=== PATIENT | male | born 1960 | race African-American/Black ===

== ENCOUNTER 2016-06-06 09:02 | Emergency (ER) | payer OTHER ==
[~2016-06-06] VITALS: Ht 177.8 cm; Wt 90.7 kg
--- NOTE | 2016-06-06 09:30 | ED UPPER/LOWER EXTREMITY COMPL ---
History of Present Illness General Chief Complaint: Upper Extremity Injury Stated Complaint: FALL, SHOULDER DISLOCATION? Source: patient Exam Limitations: no limitations Vital Signs & Intake/Output Vital Signs & Intake/Output Vital Signs Date Time Temp Pulse Resp B/P Pulse O2 O2 Flow FiO2 Ox Delivery Rate 06/06 1006 98.7 80 118/70 06/06 0912 98.1 72 20 112/76 96 Room Air Allergies Coded Allergies: codeine (Intermediate, NAUSEA 06/06/16) Reconcile Medications Albuterol Sulfate (Ventolin Hfa) 90 MCG HFA.AER.AD 2 PUF INH Q4-6 PRN PRN BREATHING PROBLEMS (Reported) Atenolol/Chlorthalidone (Atenolol-Chlorthalidone 50-25) 50 MG-25 MG TABLET 1 TAB PO DAILY HEART (Reported) Desloratadine (Clarinex) 5 MG TABLET 1 TAB PO DAILY ALLERGIES (Reported) Enalapril Maleate 2.5 MG TABLET 1 TAB PO DAILY HEART (Reported) Fenofibrate 160 MG TABLET 1 TAB PO DAILY TRIGLYCERIDES (Reported) Hydrocodone/Acetaminophen (Maddock 5-325 Tablet) 5 MG-325 MG TABLET 1-2 TAB PO Q4-6 PRN PRN pain Pioglitazone HCl 30 MG TABLET 1 TAB PO DAILY DIABETES (Reported) Simvastatin (Simvastatin*) 80 MG TABLET 1 TAB PO DAILY [id number] (Reported ) Sitagliptin Phosphate (Januvia) 100 MG TABLET 1 TAB PO DAILY DIABETES ( Reported) Tadalafil (Cialis) 20 MG TABLET 1 TAB PO DAILY PRN ED (Reported) Triage Note: TRIAGE: PT TO ER C/C PAIN TO L SHOULDER S/P FALL THIS MORNING. STATES HE SLIPPED ON ICE AND BRACED HIMSELF WITH HIS L ARM. STATES FELT A SHARP PAIN AND COULDN'T MOVE HIS ARM. STATES HAS MOBILITY BUT HAS EXCRUCIATING PAIN WITH MOVEMENT. Triage Nurses Notes Reviewed? yes Onset: Abrupt Duration: hour(s): (1) Timing: no prior history Severity: moderate Severity Numbers: 8 Pain/Injury Location: Left: Shoulder. Method of Injury: fall Modifying Factors: Improves With: immobilization. HPI: Patient is a 55-year-old male presenting to the emergency department with chief complaint of left shoulder pain 1 hour after he slipped and fell on ice. Patient reports that the pain is moderate achy throbbing, gets sharp and stabbing in betrays to move his arm. Denies numbness or tingling. Denies radiation of the pain. Denies head injury. No neck pain or back pain. Denies taking anything prior to arrival to help with pain. He thinks he may have dislocated his shoulder. (SCOTTIE LINDSEY) Past History Travel History Traveled to [place] past 21 day No Medical History Any Pertinent Medical History? see below for history Neurological: NONE EENT: NONE Cardiovascular: hypertension, hyperlipidemia Respiratory: NONE Gastrointestinal: NONE Hepatic: NONE Renal: NONE Musculoskeletal: FOOT FX FINGER FX WRIST FX Psychiatric: NONE Endocrine: DM Blood Disorders: NONE Cancer(s): NONE Surgical History Surgical History: non-contributory Psychosocial History What is your primary language Bruneian Tobacco Use: Quit >30 days ago ETOH Use: occasional use Illicit Drug Use: denies illicit drug use Family History Hx Contributory? No (SCOTTIE LINDSEY) Review of Systems Review of Systems Constitutional: Reports: no symptoms. Comments Review of systems: See HPI, All other systems negative. Constitutional, no chills fever or weight loss HEENT: No visual changes no sore throat no congestion Cardiovascular: No chest pain ,palpitation Skin, no jaundice no rashes Respiratory: No dyspnea cough sputum or hemoptysis GI: No nausea no vomiting Muscle skeletal: no back pain, no neck pain, Neurologic: No numbness no confusion Psych: No stress anxiety or depression,. Heme/endocrine: No bruising no bleeding no polyuria or polydipsia Immunology: No splenectomy or history of AIDS (SCOTTIE LINDSEY) Physical Exam Physical Exam General Appearance: well developed/nourished, no apparent distress, alert, awake , comfortable Comments: Well-developed well-nourished person in no acute distress HEENT: Pupils equally round and reactive to light and accommodation. Nose is atraumatic. Neck: Supple, no lymphadenopathy, normal range of motion without pain or tenderness, no C-spine tenderness. Back: Nontender Cardiovascular: normal JVP Respiratory: Chest nontender. No respiratory distress. Extremity: No edema, radial pulses are 2+ bilaterally. Tender to palpation over the proximal left humerus and left AC joint. Limited range of motion of left shoulder secondary to pain. Pain at approximately 20 of left shoulder abduction. Full range of motion of left elbow, left hand, left wrist. No obvious deformity noted over the left shoulder. No clavicle pain to palpation over the left or right. Neuro: Alert oriented x3, motor sensory normal Skin: No appreciable rash on exposed skin, skin is warm and dry. Psych: Mood and affect is normal, memory and judgment is normal. (EL MILES,SCOTTIE) Progress Differential Diagnosis: contusion, dislocation, fracture, sprain, tendon injury Plan of Care: Orders Procedure Date/time Status Durable Medical Equipment 06/06 928 Active Diagnostic Imaging: Viewed by Me: Radiology Read. Discussed w/RAD: Radiology Read. Radiology Impression: PATIENT: STANISLAV DÍAZ PRESENT AGE: 55 PATIENT ACCOUNT NO: [id number] : 61 LOCATION: [facility] ORDERING PHYSICIAN: SCOTTIE MILES SERVICE DATE: 06/06/16 EXAM TYPE: RAD - XRY-SHOULDER COMPLETE-LEFT EXAMINATION: XR SHOULDER, LEFT CLINICAL INFORMATION: Left shoulder pain after fall. Evaluate for fracture. COMPARISON: None TECHNIQUE : AP external rotation, Grashey, scapular Y, and axillary views of the left shoulder. FINDINGS: The visualized distal clavicle and acromioclavicular joint are unremarkable. The subacromial space is normal. The humeral head is well- positioned over the glenoid. A Hill-Sachs deformity is noted. Also, there is mild cortical irregularity of the anteroinferior glenoid consistent with an osseous Bankart injury. There is appears to be a curvilinear 0.4 x 1 cm ossific fragment overlying the anteromedial head. IMPRESSION: Hill-Sachs deformity and osseous Bankart injury. Currently, the humeral head is well-positioned over the glenoid. There is likely a curvilinear 0.4 x 1 cm ossific fragment overlying the anteromedial aspect of the humeral head; it probably represents a displaced glenoid fragment. Comments: Given IM Toradol on arrival for pain. Placed in sling. Patient informed of x-ray results. He will follow up with orthopedic. Given pain medication. Patient nontoxic. No signs of dislocation. (EL MILES,SCOTTIE) Departure Departure Time of Disposition: 1038 Disposition: HOME OR SELF CARE Condition: Stable Clinical Impression Primary Impression: Shoulder fracture Qualifiers: Encounter type: initial encounter Fracture type: closed Laterality: left Qualified Code: S42.92XA - Fracture of left shoulder girdle, part unspecified, initial encounter for closed fracture Referrals: PATIENT HAS NO PRIMARY CARE DR (PCP/Family) CALEB FRANCISCO,JARRELL Vences Additional Instructions: Follow-up with , orthopedic call today to make an appointment. Wear sling until follow-up. Take Vicodin as prescribed for severe pain. Otherwise use [id number] ibuprofen as directed. Departure Forms: Customer Survey General Discharge Information Prescriptions: Current Visit Scripts Hydrocodone/Acetaminophen (Maddock 5-325 Tablet) 1-2 TAB PO Q4-6 PRN PRN pain #10 TAB (SCOTTIE LINDSEY) PA/FRUIT OR NUT FARM WORKER Co-Sign Statement Statement: ED Attending supervision documentation- [] I saw and evaluated the patient. I have also reviewed all the pertinent lab results and diagnostic results. I agree with the findings and the plan of care as documented in the PA's/FRUIT OR NUT FARM WORKER's documentation. [X] I have reviewed the ED Record and agree with the PA's/FRUIT OR NUT FARM WORKER's documentation. [] Additions or exceptions (if any) to the PAs/FRUIT OR NUT FARM WORKER's note and plan are summarized below: [] (VAIBHAV FRANCISCO,CHRISTY) Procedures Splinting Location: left shoulder Manual Alignment Performed: No Pre-Made Type: velcro Hand-Made Type: sling Splint: shoulder immobilizer Splint Applied By: splint applied by me Pre-Proc Neuro Vasc Exam: normal Post-Proc Neuro Vasc Exam: normal Progress: Patient tolerated procedure well. (SCOTTIE LINDSEY)
[2016-06-06 10:06] VITALS: BP 118/70
[2016-06-06] MEDS ORDERED: JANUVIA100 M1 PO (10:11)
[2016-06-06] MEDS ORDERED: ATENOLOL-CHLOR1 EAC1 PO (10:11)
[2016-06-06] MEDS ORDERED: CLARINEX5 M1 PO (10:11)
[2016-06-06] MEDS ORDERED: SIMVASTATIN80 M1 PO (10:11)
[2016-06-06] MEDS ORDERED: PIOGLITAZONE HC30 M1 PO (10:12)
[2016-06-06] MEDS ORDERED: CIALIS20 M1 PO (10:12)
[2016-06-06] MEDS ORDERED: FENOFIBRATE160 M1 PO (10:12)
[2016-06-06] MEDS ORDERED: VENTOLIN HFA18 GM INH (10:12)
[2016-06-06] MEDS ORDERED: ENALAPRIL MALE2.5 M1 PO (10:12)
--- NOTE | 2016-06-06 10:26 | RADIOLOGY REPORT ---
EXAMINATION: XR SHOULDER, LEFT CLINICAL INFORMATION: Left shoulder pain after fall. Evaluate for fracture. COMPARISON: None TECHNIQUE: AP external rotation, Grashey, scapular Y, and axillary views of the left shoulder. FINDINGS: The visualized distal clavicle and acromioclavicular joint are unremarkable. The subacromial space is normal. The humeral head is well-positioned over the glenoid. A Hill-Sachs deformity is noted. Also, there is mild cortical irregularity of the anteroinferior glenoid consistent with an osseous Bankart injury. There is appears to be a curvilinear 0.4 x 1 cm ossific fragment overlying the anteromedial head. IMPRESSION: Hill-Sachs deformity and osseous Bankart injury. Currently, the humeral head is well-positioned over the glenoid. There is likely a curvilinear 0.4 x 1 cm ossific fragment overlying the anteromedial aspect of the humeral head; it probably represents a displaced glenoid fragment.
[2016-06-06] MEDS ORDERED: NORCO 5-325 TA1 EACH PO (10:45)
== END 2016-06-06 10:50 ==
LOC: ERH 09:02
DX: S42.292A Other displaced fracture of upper end of left humerus, initial encounter for closed fracture (principal); W00.0XXA Fall on same level due to ice and snow, initial encounter
CPT/HCPCS: 73030-LT; 96372; J1885